=== PATIENT | male | born 1950 | race Caucasian/White ===

== ENCOUNTER → 2017-01-13 | Day surgery (SDC) | payer MEDICARE, OTHER ==
[~2017-01-13] MED LIST: LACTATED RINGER'S 1000 ML INJ 1,000 ML ONE; Z.0.NO CURRENT MEDS
== END | disposition home or self-care (01) ==
LOC: ESDC 09:08
PROVIDERS: ATTEND Internal Medicine Gastroenterology
DX: K74.60 Unspecified cirrhosis of liver (principal)
CPT/HCPCS: 99211; G0463; J7120